=== PATIENT | male | born 1970 | race Two or more races ===

== ENCOUNTER 2023-07-10 00:57 | Emergency (ER) | payer MEDICAID ==
[~2023-07-10] VITALS: Ht 157.5 cm; Wt 65.0 kg
[2023-07-10 01:28] VITALS: TEMP 98.2
[2023-07-10] MEDS ORDERED: CloNIDine HCL 0.1 MG TABLET PO ONE (01:45)
[2023-07-10] MEDS ORDERED: SODIUM CHLORIDE 0.9% 500 ML IV ONE ×2 (03:48→04:00)
[2023-07-10 05:55] VITALS: BP 105/75; PULSE 55; RESP 16
== END 2023-07-10 06:30 | disposition home or self-care (01) ==
LOC: EMS 00:59
DX: I10 Essential (primary) hypertension (principal); G43.909 Migraine, unspecified, not intractable, without status migrainosus; E11.9 Type 2 diabetes mellitus without complications; F17.210 Nicotine dependence, cigarettes, uncomplicated
CPT/HCPCS: 99285; 96360; 70450; J7040